=== PATIENT | female | born 1965 | race Caucasian/White ===

== ENCOUNTER 2020-07-04 20:58 | Emergency (ER) | payer OTHER, SELFPAY ==
[2020-07-04 21:37] VITALS: BP 141/71; PULSE 68; RESP 18; TEMP 35.8; O2SAT 100
[2020-07-04 21:57] LABS: Basophils Percent Auto 0.2 % (0.2-1.2); Eosinophils Percent Auto 0.1 % (0-4.4); Hematocrit 44.1 % (37.0-47.0); Hemoglobin 14.8 g/dL (12.0-15.0); Immature Granulocyte Absolute 0.02 K/mm3 (0.00-0.031); Immature Granulocyte Percent A 0.2 % (0-0.5); Immature Platelet Fraction Pct 7.1 % (0.9-11.2); Lymphocytes Absolute Auto 0.66 K/mm3 (0.9-3.2); Mean Corpuscular HGB Conc 33.6 g/dl (32-36); Mean Corpuscular Volume 89.3 fl (80-100); Mean Platelet Volume 10.5 fl (7.4-10.4); Monocytes Absolute Auto 0.1 K/mm3 (0.1-0.6); Monocytes Percent Auto 1.3 % (2.6-8.5); Neutrophils Absolute Auto 7.4 K/mm3 (1.3-6.7); Neutrophils Percent Auto 90.2 % (45.5-73.1); Platelet Count Result 240 k/mm3 (150-375); Red Blood Count 4.94 M/mm3 (4.2-5.4); White Blood Count 8.3 K/mm3 (4.5-10.0)
[2020-07-04 22:00] LABS: Alanine Aminotransferase 16 U/L (4-35); Albumin Level 4.8 g/dL (3.5-5.1); Alkaline Phosphatase 73 U/L (38-126); Anion Gap 7 mmol/L (8-16); Aspartate Amino Transferase 32 U/L (14-36); Bilirubin,Total 0.4 mg/dL (0.2-1.3); Blood Urea Nitrogen 18 mg/dL (7-17); Calcium 9.8 mg/dL (8.4-10.2); Carbon Dioxide 30 mmol/L (22-30); Chloride 101 mmol/L (98-107); Estimated CRCL calculation 77 ml/min; Estimated Glomerular Filt Rate > 60; Glucose 149 mg/dL (65-105); Lipase 43 U/L (23-300); Potassium 4.4 mmol/L (3.4-5.0); Sodium 138 mmol/L (137-145)
[2020-07-04 22:19] LABS: Add Urine Microscopic? YES; Appearance Urine Cloudy (Clear); Bacteria Urine Trace /hpf; Bilirubin Urine Negative (Negative); Blood Urine Negative (Negative); Color Urine Yellow (Yellow); Glucose Urine UA Negative (Negative); Ketones Urine 2+ mg/dL (Negative); Leukocyte Esterase Ur Negative LEU/UL (Negative); Mucus Urine Few /lpf; Nitrate Urine Negative (Negative); Protein Urine 1+ mg/dL (Negative); RBC Urine 0-2 /hpf (0-2); Specific Grav Ur 1.021 (1.001-1.035); Squamous Epithelial Cell Urine Many /hpf (Few); Urobilinogen Urine Negative mg/dL (<2.0)
[2020-07-04 23:05] VITALS: BP 129/83; PULSE 68
[2020-07-04 23:10] VITALS: BP 138/82
--- NOTE | 2020-07-04 23:13 | ED.GENADULT ---
HPI - General Adult General Chief complaint: Nausea/Vomiting/Diarrhea Stated complaint: i think i have food poisoning Time Seen by Provider: 07/04/20 22:59 Source: patient History of Present Illness HPI narrative: Patient is a 54 y/o female complaining upper abdominal pain since yesterday after dinner. She describes her pain aching and rates it as 3/10. She took Prilosec, which did not help with her pain. She started to have vomiting and diarrhea around 4:00 PM today. She also has some headache. She denies any fever. Related Data Allergies Allergy/AdvReac Type Severity Reaction Status Date / Time Sulfa (Sulfonamide Allergy Unknown Verified 08/01/15 12:17 Antibiotics) Review of Systems Constitutional: Constitutional: Denies chills, Denies fever(s), Reports headache(s) and Denies weakness Eyes: Eyes: Denies blurry vision ENT: Reports headache(s) and Denies neck pain Cardiovascular: Cardiovascular: Denies chest pain and Denies dyspnea Respiratory: Respiratory: Denies cough and Denies dyspnea Gastrointestinal: Gastrointestinal: Reports abdominal pain, Reports diarrhea, Reports nausea and Reports vomiting Genitourinary: Genitourinary: Denies hematuria and Denies dysuria Musculoskeletal: Musculoskeletal: Denies back pain and Denies neck pain Neurologic: Reports headache(s) and Denies weakness Exam Const: General: no acute distress and well developed Orientation/consciousness: oriented to person, oriented to place, oriented to time and patient oriented x3 HENMT: Head: normocephalic Ears: external ears normal General nose exam: Normal external nose present Eyes: General: appearance normal, both eyes and all related structures Conjunctivae: conjunctivae normal Neck: Neck: normal visual inspection and full ROM Chest: Chest palpation & inspection: normal inspection of the chest and no tenderness Resp: Effort & Inspection: normal respiratory effort Auscultation: clear to auscultation bilaterally Cardio: Rate: regular rate Rhythm: regular rhythm GI: GI Palp: No abdominal tenderness and Yes Soft to palpation Skin: General skin exam: normal color and turgor normal Neuro: General: oriented to person, oriented to place, oriented to time and patient oriented x3 Cognition (Neuro): normal cognition Extrem: General: normal to inspection, full ROM and no pedal edema Psych: Appearance: grossly normal Mental Status: mental status grossly normal Affect: normal affect Course Vital Signs Vital signs: Vital Signs Temperature 35.8 C L 07/04/20 21:37 Pulse Rate 68 07/04/20 21:37 Respiratory Rate 18 07/04/20 21:37 Blood Pressure 141/71 H 07/04/20 21:37 Pulse Oximetry 100 07/04/20 21:37 Temperature 35.8 C L 07/04/20 21:37 Pulse Rate 77 07/05/20 00:05 Respiratory Rate 95 H 07/05/20 00:05 Blood Pressure 120/82 07/05/20 00:05 Pulse Oximetry 100 07/05/20 00:05 Medical Decision Making Vital Signs Vital Signs: Vital Signs Temperature 35.8 C L 07/04/20 21:37 Pulse Rate 68 07/04/20 21:37 Respiratory Rate 18 07/04/20 21:37 Blood Pressure 141/71 H 07/04/20 21:37 Pulse Oximetry 100 07/04/20 21:37 Temperature 35.8 C L 07/04/20 21:37 Pulse Rate 77 07/05/20 00:05 Respiratory Rate 95 H 07/05/20 00:05 Blood Pressure 120/82 07/05/20 00:05 Pulse Oximetry 100 07/05/20 00:05 Lab Data Result diagrams: 07/04/20 21:43 07/04/20 21:43 Labs: Lab Results 07/04/20 07/04/20 07/04/20 Range/Units 21:43 21:43 21:58 WBC 8.3 (4.5-10.0) K/mm3 RBC 4.94 (4.2-5.4) M/mm3 Hgb 14.8 (12.0-15.0) g/dL Hct 44.1 (37.0-47.0) % MCV 89.3 (80-100) fl MCH 30.0 (26-34) pg MCHC 33.6 (32-36) g/dl RDW 13.0 (11.5-14.5) % Plt Count 240 (150-375) k/mm3 MPV 10.5 H (7.4-10.4) fl Immature Gran % (Auto) 0.2 (0-0.5) % Neut % (Auto) 90.2 H (45.5-73.1) % Lymph % (Auto) 8.0 L (18.3-44.2) % [place]
[2020-07-04 23:15] VITALS: BP 110/85; PULSE 87
[2020-07-04] MEDS: diphenhydrAMINE HCl INJ 50 MG/ML VIAL 25 MG IV PUSH (23:20)
[2020-07-04] MEDS: SODIUM CHLORIDE 0.9% IV 1,000 ML 999 ML IV CONT (23:20)
[2020-07-04] MEDS: KETOROLAC 30 MG/ML VIAL (*BKC) IV PUSH (23:21)
[2020-07-04] MEDS: METOCLOPRAMIDE HCL INJ 10 MG/2 ML VIAL IV PUSH (23:21)
[2020-07-05 00:05] VITALS: BP 120/82; PULSE 77; RESP 95; O2SAT 100
== END 2020-07-05 00:40 | disposition home or self-care (01) ==
PROVIDERS: Emergency Medicine; Emergency Provider Emergency Medicine
DX: K52.9 Noninfective gastroenteritis and colitis, unspecified (principal); E86.0 Dehydration; R51.9 Headache, unspecified
CPT/HCPCS: 36415; 80053; 81001; 81025; 83690; 85025; 85055; 96361; 96374; 96375; 99284; J1200; J1885; J2765; J7030